=== PATIENT | male | born 1950 | race Asian ===

== ENCOUNTER → 2016-12-13 | Outpatient (CLI) | payer MEDICARE, OTHER ==
[~2016-12-13] VITALS: Ht 170.2 cm; Wt 66.5 kg
[~2016-12-13] MED LIST: BETA1TAB20 PO; FOLI-74 PO; VITA1TAB20 PO
[2016-12-13 11:57] VITALS: BP 157/86
== END | disposition home or self-care (01) ==
LOC: SRCNTR 11:54
PROVIDERS: ATTEND Internal Medicine Critical Care Medicine
DX: J18.9 Pneumonia, unspecified organism (principal); J47.1 Bronchiectasis with (acute) exacerbation; C22.8 Malignant neoplasm of liver, primary, unspecified as to type
CPT/HCPCS: G0463

== ENCOUNTER → 2017-03-18 | Outpatient (CLI) | payer MEDICARE ==
[~2017-03-18] VITALS: Ht 170.2 cm; Wt 65.5 kg
[2017-03-18 11:38] VITALS: BP 143/86
== END | disposition home or self-care (01) ==
LOC: SRCNTR 11:20
PROVIDERS: ATTEND Internal Medicine Critical Care Medicine
DX: J18.9 Pneumonia, unspecified organism (principal); C22.8 Malignant neoplasm of liver, primary, unspecified as to type; J47.1 Bronchiectasis with (acute) exacerbation
CPT/HCPCS: G0463

== ENCOUNTER → 2017-06-18 | Outpatient (CLI) | payer MEDICARE ==
[~2017-06-18] VITALS: Ht 170.2 cm; Wt 65.5 kg
[2017-06-18 11:40] VITALS: BP 115/76
== END | disposition home or self-care (01) ==
LOC: SRCNTR 10:50
PROVIDERS: ATTEND Internal Medicine Critical Care Medicine
DX: J18.9 Pneumonia, unspecified organism (principal); J47.1 Bronchiectasis with (acute) exacerbation; C22.8 Malignant neoplasm of liver, primary, unspecified as to type
CPT/HCPCS: G0463